=== PATIENT | male | born 1995 | race Caucasian/White ===

== ENCOUNTER 2024-07-13 13:48 | Emergency (ER) | payer OTHER, SELFPAY ==
[2024-07-13 14:09] VITALS: BP 179/91; PULSE 86; TEMP 37; O2SAT 100; BMI 51.1
--- NOTE | 2024-07-13 14:21 | ED_ITS ---
HPI - Extremity Problem General Chief complaint: Extremity Problem, Nontraumatic Stated complaint: LOWER RIGHT EXTREMITY ITCHY, SWELLING Time Seen by Provider: 07/13/24 14:16 Source: patient Mode of arrival: walk-in Limitations: no limitations History of Present Illness HPI Narrative: 28 year old male presents to the ED for erythema to his right anterior lower leg. Onset was 10-14 days ago. Reports completing a 10-day course of doxycycline. It started on the back of the leg. States it was improving and then moved to the front of the leg. His first treatment for cellulitis of the RLE was one year ago. Denies fever, chills, weakness, recent injury, N/T. States he recently had blood work completed; he would prefer to not have blood work drawn today. Related Data Previous Rx's ?Medication ?Instructions ?Recorded clindamycin HCl 300 mg capsule 300 mg PO TID 10 days #30 caps 07/13/24 Allergies Allergy/AdvReac Type Severity Reaction Status Date / Time amoxicillin AdvReac Severe Rash Verified 07/13/24 14:09 Penicillins AdvReac Severe Hives Verified 07/13/24 14:09 Review of Systems ROS Constitutional Denies: fever or chills Cardiovascular Denies: chest pain or edema Respiratory Denies: shortness of breath Integumentary/Breast Reports: redness and skin tenderness Neurological Denies: numbness in extremities or weakness in extremities PFSH PFSH Social History Little interest or pleasure in doing things: not at all Feeling down, depressed, or hopeless: not at all Exam Constitutional Vital Signs, click to edit/add: Last Vital Signs Temp 98.6 F 07/13/24 14:09 Pulse 86 07/13/24 14:09 Resp 18 07/13/24 14:09 BP 179/91 H 07/13/24 14:09 Pulse Ox 100 07/13/24 14:09 Common normals: no apparent distress and oriented x3 General appearance: cooperative; not ill appearing Eye Common normals: conjunctivae normal and no scleral icterus Neck & C-Spine Common normals: supple Chest Chest: symmetrical chest wall rise Respiratory Common normals: normal respiratory effort Effort & inspection: able to speak in complete sentences Cardio Common normals: regular rate Peripheral pulses: posterior tibial pulses present and dorsalis pedis pulses present Extremity Other: Areas of erythema with increased warmth to right anterior lower leg. No pitting edema. No drainage. No open wounds. 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 Course Vital Signs Vital signs: Vital Signs Temperature 98.6 F 07/13/24 14:09 Pulse Rate 86 07/13/24 14:09 Respiratory Rate 18 07/13/24 14:09 Blood Pressure 179/91 H 07/13/24 14:09 Pulse Oximetry 100 07/13/24 14:09 Temperature 98.6 F 07/13/24 14:09 Pulse Rate 86 07/13/24 14:09 Respiratory Rate 18 07/13/24 14:09 Blood Pressure 179/91 H 07/13/24 14:09 Pulse Oximetry 100 07/13/24 14:09 MDM - Extremity (Nontraumatic) MDM Narrative Medical decision making narrative: The patient preferred not to have blood work completed today. A prescription was provided for clindamycin for the cellulitis. Follow up with pcp for a recheck, further evaluation and treatment. Return precautions were discussed. Medical Records Attestation: I reviewed the patient's medical records. Discharge Plan Discharge Chief Complaint: Extremity Problem, Nontraumatic Clinical Impression: Cellulitis Patient Disposition: Home, Self-Care Time of Disposition Decision: 14:30 Condition: Good Mode of Transportation: Private Vehicle Prescriptions / Home Meds: New clindamycin HCl 300 mg capsule 300 mg PO TID 10 Days Qty: 30 0RF Print Language: Anguillan Instructions: Cellulitis (ED) Referrals: KATEY RUTH DO [Primary Care Provider] - 1 week
== END 2024-07-13 14:40 | disposition home or self-care (01) ==
PROVIDERS: Emergency Provider Emergency Medicine; PCP Family Medicine
DX: L03.115 Cellulitis of right lower limb (principal)
CPT/HCPCS: 99283

== ENCOUNTER 2025-09-10 09:26 | Emergency (ER) | payer OTHER, SELFPAY ==
--- OUTSIDE RECORDS SUMMARY | 2024-07-02 08:00 | XMS_ITS ---
Author Organization The [facility] in [place] Address [address] [place] [address] Care Team Providers Care Oval Or Circular Glass Cutter Name Role Phone Tawanda Brasher Primary Care Provider REASON FOR VISIT -6 Month Follow Up- Encounters Encounter Location Date Provider Diagnosis [address] [address] 07/02/2024 Tawanda Brasher Plan Of Treatment No Information Progress Notes * SANDEEPAntelmoOB:1995 ( 29 yo M)Acc No.[id number]:07/02/2024 UNLOCKED PROGRESS NOTE Established Patient: Kun SUN :?Tawanda Brasher DODOB:1995???Age:28 Y ???Sex:MaleDate:07/02/2024hone:[phone]:NICA CARRASCO [id number] Subjective: * Chief Complaints: * 1 . -6 Month Follow Up-. * Medical History: Objective: * Vitals: Assessment: Plan: * Treatment: * * Electronic signature of Tawanda Brasher DO, [id number] on 09/10/2025 at 10:09 AM ESTSign off status: PendingVisit Status:?R/S (Rescheduled) * Provider: Caitlyn Brasher DO Date: 0 07/02/2024 Generated for Printing/Faxing/eTransmitting on:?09/10/2025 10:09 AM EST
--- OUTSIDE RECORDS SUMMARY | 2025-06-25 06:00 | XMS_ITS ---
Author Organization [facility] in [place] Address [address] [place] [address] Care Team Providers Care Mangle Roll Operator Name Role Phone Tawanda Brasher Primary Care Provider [phone] REASON FOR VISIT yearly wellness exam Encounters Encounter Location Date Provider Diagnosis [place] [address] [place] [address] 06/25/2025 Tawanda Brasher Plan Of Treatment No Information Progress Notes * SANDEEPAntelmo ARMSTRONGOB:1995 ( 29 yo M)Acc No.[id number]:06/25/2025 UNLOCKED PROGRESS NOTE Progress Note Patient: Kun SUN :?Tawanda Brasher DODOB:1995???Age:29 Y ???Sex:MaleDate:06/25/2025Phone:[phone]:NICA CARRASCO [id number] Subjective: * Chief Complaints: * 1 . Yearly wellness exam. * Medical History: Objective: * Vitals: Assessment: Plan: * Treatment: * * Electronic signature of Tawanda Brasher DO, [id number] on 09/10/2025 at 10:08 AM ESTSign off status: PendingVisit Status:?CANC (Cancelled) * Provider: Caitlyn Brasher DO Date: 0 06/25/2025 Generated for Printing/Faxing/eTransmitting on:?09/10/2025 10:08 AM EST
[2025-09-10 09:35] VITALS: BP 180/106; PULSE 86; TEMP 36.6; O2SAT 100; BMI 51.0
--- NOTE | 2025-09-10 09:57 | ED.GENADUL1 ---
HPI HPI - General Adult General Chief complaint: Extremity Problem, Nontraumatic Stated complaint: R LEG REDNESS PAIN Time Seen by Provider: 09/10/25 09:35 Source: patient Mode of arrival: walk-in History of Present Illness HPI narrative: Patient is a healthy 29-year-old male, history only significant for recurrent episodes of lower extremity cellulitis, presenting to the emergency department for concerns of cellulitis. Patient states he noticed a mildly red and painful rash on the right anterior quintana that began 2 days ago. He states this feels exactly his last episode of cellulitis and is requesting antibiotics. Other than the pain/rash, he has no other systemic symptoms. No fevers or chills. No nausea or vomiting. No chest pain or shortness of breath. Related Data Home Medications ?Medication ?Instructions ?Recorded ?Confirmed nebivolol 20 mg tablet 20 mg PO DAILY 09/10/25 09/10/25 Previous Rx's ?Medication ?Instructions ?Recorded doxycycline hyclate 100 mg capsule 100 mg PO BID 7 days #14 caps 09/10/25 Allergies Allergy/AdvReac Type Severity Reaction Status Date / Time amoxicillin AdvReac Severe Rash Verified 09/10/25 09:34 Penicillins AdvReac Severe Hives Verified 09/10/25 09:34 Opioid HPI Opioid Management Most Recent Opioid Data: Last Pain Scale 3 Today, 09:40 Review of Systems ROS Status of ROS 10 or more systems reviewed and unremarkable except as noted in history and below PFSH PFSH Social History Little interest or pleasure in doing things: not at all Feeling down, depressed, or hopeless: not at all Exam Narrative Exam Narrative: CONSTITUTIONAL: Well-appearing, answering questions and following commands appropriately SKIN: Was warm and dry. EYES: Sclerae white. EARS, NOSE, THROAT: Moist oral mucosa. RESPIRATORY: Nonlabored respirations. CARDIOVASCULAR: Normal rate and regular rhythm. There is no S3, S4, murmur, rub. GASTROINTESTINAL: Abdomen is nondistended. MUSCULOSKELETAL: There is a subtle, mild erythematous rash on the patient's anterior tibia approximately 4 cm in surface area. It is mildly warm to the touch. There is no induration, fluctuance, bulla formation, crepitus, or drainage. NEUROLOGIC: Patient is awake and alert. Ambulates with a steady gait. Facies were symmetrical. Constitutional Vital Signs, click to edit/add: Last Vital Signs Temp 97.8 F 09/10/25 09:35 Pulse 86 09/10/25 09:35 Resp 16 09/10/25 09:35 BP 180/106 H 09/10/25 09:35 Pulse Ox 100 09/10/25 09:35 O2 Del Method Room Air 09/10/25 09:35 Course Vital Signs Vital signs: Vital Signs Temperature 97.8 F 09/10/25 09:35 Pulse Rate 86 09/10/25 09:35 Respiratory Rate 16 09/10/25 09:35 Blood Pressure 180/106 H 09/10/25 09:35 Pulse Oximetry 100 09/10/25 09:35 Oxygen Delivery Method Room Air 09/10/25 09:35 Temperature 97.8 F 09/10/25 09:35 Pulse Rate 86 09/10/25 09:35 Respiratory Rate 16 09/10/25 09:35 Blood Pressure 180/106 H 09/10/25 09:35 Pulse Oximetry 100 09/10/25 09:35 Oxygen Delivery Method Room Air 09/10/25 09:35 Medical Decision Making [facility] Narrative Medical decision making narrative: Patient is a healthy 29-year-old male presenting to the emergency department with a 2-day history of right lower extremity pain and rash. His vital signs were significant for hypertension, otherwise within normal limits. He is afebrile and hemodynamically stable. The patient's history and physical examination is consistent with early cellulitis. No crepitus, bulla formation, or other systemic symptoms to suggest necrotizing fasciitis. He overall is well-appearing and nontoxic. I do believe the patient is stable for discharge. They were instructed to follow up with his PCP for further care. Return precautions were given including any new or worsening symptoms. They were given a prescription for doxycycline 100 mg twice daily x 7 days. Patient understands and agrees to the plan. FINAL IMPRESSION: #Acute mild right lower extremity cellulitis DISPOSITION: Discharged home CONDITION: Good Differential Diagnosis Differential Diagnosis: cellulitis, dermatitis Discharge Plan Discharge Chief Complaint: Extremity Problem, Nontraumatic Clinical Impression: Cellulitis Patient Disposition: Home, Self-Care Time of Disposition Decision: 09:51 Condition: Good Mode of Transportation: Private Vehicle Prescriptions / Home Meds: New doxycycline hyclate 100 mg capsule 100 mg PO BID 7 Days Qty: 14 0RF No Action nebivolol 20 mg tablet 20 mg PO DAILY Print Language: Guatemalan Instructions: Cellulitis (ED) Referrals: KATEY RUTH DO [Primary Care Provider, Family Practice] - 1 week
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
--- OUTSIDE RECORDS SUMMARY | 2025-09-10 10:09 | XMS_ITS | Clinical Summary ---
Author Organization [facility] Address [address] [place], [place] [id number] Care Team Providers Care Interior Design Professional Name Role Phone Unavailable Primary Care Provider Unavailabl e Allergies Active AllergyReactionsCriticalityNoted DateCommentsAmoxicillinRash,Swelling 06/09/2020 Medications No known medications Active Problems No known active problems Social History Tobacco UseTypesPacks/DayYears UsedDateSmoking Tobacco: Never AssessedArea Deprivation IndexAnswerDate RecordedNational Score (1-100), lower number is lower riskNot on file10/12/2020State Score (1-10), lower number is lower riskNot on file10/12/2020Data from: https://www.neighborhoodatlas.[facility].edu/. Last address used for calculationNot on file10/12/2020Sex and Gender Information ValueDate RecordedSex Assigned at BirthNot on fileLegal JzvTapy1001/15/2020 1:06 PM EDTGender IdentityNot on fileSexual OrientationNot on file Last Filed Vital Signs Vital SignReadingTime TakenCommentsBlood Gasxuzro265/8508 9:45 AM EDT Mgnst9596 9:45 AM EDTTemperature--Respiratory Rate--Oxygen Saturation-- Inhaled Oxygen Concentration--Guwwfs735.3 kg (327 lb)06/09/2020 9:45 AM EDT Height--Body Mass Index-- Plan of Treatment Health MaintenanceDue DateLast DoneCommentsAnxiety Ptmxkobxs32/10/2015Depression Iqlqkjobq91/10/2015HIV Uekicuyqd95/10/2015Hepatitis C Xdvvupgug18/10/2015 DTaP,Tdap,Td Vaccine (1 - Tdap)2015Hepatitis B Vaccine (1 of 3 - 19+ 3- dose series)2015HPV Vaccine (1 - 3-dose SCDM series)4Covid-19 Vaccine (2024- season)2025Influenza Vaccine (#1)2025 Insurance [facility] [place] [place] Address: [address] [address] [place] [address]
--- OUTSIDE RECORDS SUMMARY | 2025-09-10 10:09 | XMS_ITS | Clinical Summary ---
Author Organization [facility] Address [address] [place] [address] Care Team Providers Care Psychiatric Orderly Name Role Phone Unavailable Primary Care Provider Unavailabl e Social History Tobacco UseTypesPacks/DayYears UsedDateSmoking Tobacco: Never AssessedSex and Gender InformationValueDate RecordedSex Assigned at BirthNot on fileLegal Sex Male01/16/2023 6:40 PM EDTGender IdentityNot on fileSexual OrientationNot on file Last Filed Vital Signs Vital SignReadingTime TakenCommentsBlood Pressure--Pulse--Temperature-- Respiratory Rate--Oxygen Saturation--Inhaled Oxygen Concentration--Sjxbue979 kg (373 lb)09/11/2022 12:00 PM EJRPwquch373.9 cm (6')09/11/2022 12:00 PM ESTBody Mass Index50.5909/11/2022 12:00 PM EST Plan of Treatment Not on file
--- OUTSIDE RECORDS SUMMARY | 2025-09-10 10:13 | XMS_ITS | CCD ---
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 [Mass/Vol]3.3 g/dL Critically low3.4-5.0The [facility] HospitalComment on above:Performed By: #### CMP #### [facility] [address] [address] [address] Sj SandovalAlbumin/Globulin [Mass ratio]0.8 {ratio}NormalOhiohealth Grove City Methodist HospitalComment on above:Performed By: #### CMP #### [facility] [address] [address] [address] Sj Oswald [Catalytic activity/Vol]73 U/HMmzoki12-398Xgr [facility] HospitalComment on above:Performed By: #### CMP #### [facility] [address] [address] [address] Sj Hood [Catalytic activity/Vol]50 U/NQoxybw03-66Rrs [facility] HospitalComment on above:Performed By: #### CMP #### [facility] [address] [address] [address] Sj Cooper gap [Moles/Vol]13.2 mmol/LNormalThe [facility] Comment on above:Performed By: #### CMP #### [facility] [address] [place] [address] Dr. Sj SandovalAST [Catalytic activity/Vol]22 U/MOraqtc97-83Ton [facility] HospitalComment on above:Performed By: #### CMP #### [facility] [address] [address] [address] Sj SandovalBilirubin [Mass/Vol]0.6 mg/dLNormal0.2-1.0The [facility] Comment on above:Performed By: #### CMP #### [facility] [address] [address] [address] Sj SandovalCalcium [Mass/Vol]8.9 mg/dLNormal8.5-10.1The [facility] Comment on above:Performed By: #### CMP #### [facility] [address] [address] [address] Sj SandovalChloride [Moles/Vol]105 mmol/LRypsgk96-288Tae [facility] Comment on above:Performed By: #### CMP #### [facility] [address] [address] [address] Sj SandovalCO2 [Moles/Vol]27.7 mmol/ZOzyyst30.0-32.0The [facility] Comment on above:Performed By: #### CMP #### [facility] [address] [address] [address] Sj SandovalCreatinine [Mass/Vol]0.96 mg/dLNormal0.70-1.30The [facility] HospitalComment on above:Performed By: #### CMP #### [facility] [address] [address] [address] Sj CoreasGFR-AF TAJIK>60Normal>=60The [facility] HospitalComment on above:Performed By: #### CMP #### [facility] [address] [address] [address] Sj CoreasGFR-NON AF TAJIK>60Normal>=60[facility] HospitalComment on above:Performed By: #### CMP #### [facility] [address] [address] [address] Sj SandovalGlobulin (S) [Mass/Vol]4.2 g/dLNormalThe [facility] HospitalComment on above:Performed By: #### CMP #### [facility] [address] [address] [address] Sj SandovalGlucose [Mass/Vol]86 mg/qGTftpmb14-721ZnsOhiohealth Grove City Methodist Hospital Comment on above:Performed By: #### CMP #### [facility] [address] [address] [address] Sj SandovalPotassium [Moles/Vol]3.9 mmol/LNormal3.5-5.1The [facility] Comment on above:Performed By: #### CMP #### [facility] [address] [address] [address] Sj SandovalProtein [Mass/Vol]7.5 g/dLNormal6.4-8.2[facility] Comment on above:Performed By: #### CMP #### [facility] [address] [address] [address] Sj SandovalSodium [Moles/Vol]142 mmol/QLvzyeq557-524MotOhiohealth Grove City Methodist Hospital Comment on above:Performed By: #### CMP #### [facility] [address] [place], [place] [address] Dr. Sj Munoz nitrogen [Mass/Vol]10.0 mg/dLNormal7.0-18.0[facility] HospitalComment on above:Performed By: #### CMP #### [facility] [address] [place], [place] [address] Dr. Sj SandovalUrea nitrogen/Creatinine [Mass ratio]10.4 mg/mgNoAvita Health SystemComment on above:Performed By: #### CMP #### [facility] [address] [place], [place] [address] Dr. Sj Luo MICHELLE DOP LEG RTon 75-23-8876UO MICHELLE DOP LEG RTEXAM: US MICHELLE DOP LEG RT HISTORY: Distal right lower leg redness COMPARISON: None. TECHNIQUE: Multiple sonographic images of the deep veins of the right lower extremity were obtained, supplemented with Doppler. FINDINGS: The deep veins of the right lower extremity are fairly well-visualized the groin to the mid calf. No filling defect is identified in the deep veins to indicate a thrombus. There is normal compression augmentation to flow throughout. A small amount of superficial edema is seen in the distal lower extremity. IMPRESSION: There is no direct or indirect evidence of deep vein thrombosis in the right lower extremity at this time. Electronically authenticated by: TISHA KENNEDY Date: 2023-02-19 16:49[facility] CenterMRI KNEE LT WO CONon 08-75-6848YUR KNEE LT WO CONEXAMINATION: MRI KNEE LT WO CON HISTORY: Sprain of knee COMPARISON: No relevant comparison available. TECHNIQUE: A complete multi-planar MRI was performed. FINDINGS: MEDIAL COMPARTMENT MEDIAL MENISCUS: No visible tear or significant degeneration. CARTILAGE: No visible defect. BONES: 1.4 cm area of bone edema posterior aspect of the medial tibial plateau MCL AND MEDIAL CAPSULE: Partial tear of the medial collateral ligament LATERAL COMPARTMENT LATERAL MENISCUS: No visible tear or significant degeneration. CARTILAGE: No visible defect. BONES: 2.5 cm area of bone edema lateral tibial plateau LCL/POSTEROLAT COMPLEX: Normal lateral collateral ligament, fascicles, lateral capsule and ligaments. ANTERIOR COMPARTMENT PATELLA: No marrow pathology, fracture, or significant arthropathy. CARTILAGE: No visible defect. TENDONS: Normal. EFFUSION: Moderate joint effusion ACL: Findings suggesting strain/partial tear PCL: Findings suggest partial to complete tear proximal insertion MENISCOFEMORAL: Normal meniscofemoral ligaments. OTHER: Negative. IMPRESSION: Partial or complete tear proximal posterior cruciate ligament Strain/partial tear of the anterior cruciate ligament Partial tear of medial collateral ligament Bone edema posterior medial tibial plateau and lateral tibial plateau Electronically authenticated by: ALYX SANTIAGO Date: 2022-07-20 16:49NoAvita Health SystemXR FOREIGN BODY EYEon [id number] FOREIGN BODY EYEEXAMINATION: XR FOREIGN BODY EYE HISTORY: Foreign body in eye COMPARISON: No relevant comparison available. FINDINGS: ORBITS: Negative for a metallic foreign body. OTHER: Negative. IMPRESSION: No metallic foreign body in the orbits Electronically authenticated by: ALYX SANTIAGO Date: 2022-07-20 12:35[facility] CenterXR ANKLE LT MIN 3 Von [id number] ANKLE LT MIN 3 VEXAM: XR ANKLE LT MIN 3 V HISTORY: Sprain of left ankle COMPARISON: 07/11/2022 TECHNIQUE: 3 views left ankle FINDINGS: No acute displaced fracture or dislocation identified. The ankle mortise appears intact. The talar dome is intact. The midfoot appears congruent. Achilles enthesophyte is noted. There is soft tissues on about the ankle. IMPRESSION: Negative radiographic evaluation for fracture. Electronically authenticated by: DEMARCUS MENESES Date: 2022-07-12 11:22[facility] CenterXR CSPINE MIN 4 VIEWSon [id number] CSPINE MIN 4 VIEWS EXAMINATION: XR CSPINE MIN 4 VIEWS HISTORY: Cervical spine tender COMPARISON: No relevant comparison available. FINDINGS: BONES: Loss of normal cervical lordosis. No acute fracture or spondylolisthesis DISC SPACES: Normal. No significant disc height narrowing, subluxation, or endplate abnormality. PARASPINOUS: Negative. No paraspinous abnormality is seen. OTHER: C7 is not seen on the lateral projection. IMPRESSION: Loss of normal cervical lordosis Electronically authenticated by: ALYX SANTIAGO Date: 2022-07-12 11:25[facility] Medical CenterCNOVon [id number] Visit (UROLAV) KUN HOPKINS ([id number]) 1995 M Date Time Provider Department 06/09/20 10:00 AM NICOLAS SHULTZ During your visit today, we recorded the following information about you: Pulse Blood pressure Weight 99/minute 135/85 148.3 kg Nicolas Shultz MD 06/09/2020 10:26 AM Signed PATIENT INFO: Kun Hopkins 24 year old REFERRING M.D.: DR. KATEY MYRICK RETURN COMMUNICATION TO SELF VIA Take the Interview ELECTRONIC COMMUNICATION OR LETTER IF @REFADDER@ IS NOT Epic CONNECTED CC: Buried penis HPI:Kun Hopkins is a 24 year old male who presents after undergoing circumcision with his local urologist January 2020. He was sent for post-procedure evaluation. Voiding Symptoms: Urinary frequency - No; Urinary urgency - No; Dysuria - No; Hematuria - No; Nocturia - No 0-1 times per night; Incomplete emptying - No He reports no issues with erections Constitutional; Kun Hopkins denies fever, chills, nausea, vomiting and constipation. Meds: No current outpatient medications on file. No current facility-administered medications for this visit. Alleregies: ALLERGIES Allergen Reactions - Amoxicillin Rash, Swelling PAST MEDICAL HISTORY: History reviewed. No pertinent past medical history. PAST SURGICAL HISTORY; History reviewed. No pertinent surgical history. FAMILY HISTORY; History reviewed. No pertinent family history. SOCIAL HISTORY: Social History Tobacco Use - Smoking status: Not on file Substance Use Topics - Alcohol use: Not on file - Drug use: Not on file ROS: GENERAL:No weight loss, malaise or fevers HEENT:Negative for frequent or significant headaches, No changes in hearing or vision, no nose bleeds or other nasal problems NECK:Negative for lumps, goiter, pain and significant neck swelling RESPIRATORY: Negative for cough, hemoptysis, wheezing, COPD, dyspnea or shortness of breath CARDIOVASCULAR: Negative for chest pain, leg swelling, hypertension, CHF or palpitations GASTROINTESTINAL: No nausea, vomiting, or diarrhea GENITOURINARY: No history of dysuria, frequency or incontinence MUSCULOSKELETAL: Negative for joint pain or swelling, back pain or muscle pain NEUROLOGIC:Negative for focal numbness or weakness, headaches and dizziness or syncope. SKIN:Negative for lesions, rash, and itching PSYCHIATRIC: Negative for sleep disturbance, mood disorder and recent psychosocial stressors. HEMATOLOGIC/LYMPHATIC/IMMUNOLOGIC:Negative for prolonged bleeding, bruising easily or swollen nodes The remainder of the ROS was negative. P/E: General appearance: Well appearing, alert, in no acute distress, well-hydrated, well nourished, obese Skin: Skin color, texture, turgor normal, no suspicious rashes or lesions Head: Normocephalic, no masses, lesions, tenderness or abnormalities Eyes: Anicteric sclera.Pupils equally round Ears: External ears normal Nose/Sinuses: Nares normal Oropharynx: Lips, mucosa, and tongue normal, teeth and gums normal, oropharynx normal Neck: Supple, no adenopathy; thyroid symmetric, normal size Back: Normal exam, no CVA tenderness Lungs: lungs clear to auscultation. No wheezing, rhonchi, rales Heart: RRR without murmur, gallop, or rubs. Abdomen: soft, non-tender. Bowel sounds normal. No masses, organomegaly, no hernia Genitals: penis normal with dog-ear deformity @ 10:00 and 2:00 locations, no lesion, urethral meatus is normal, scrotum - no lesions or erythema, testicles bilaterally descended, non-tender, no masses, epididymus normal bilaterally Extremities: No deformities, edema, skin discoloration, clubbing or cyanosis. Good capillary refill. Musculoskeletal: No joint swelling, deformity, or tenderness Neuro: Gait normal. Sensation grossly intact. Additional data reviewed: U/A ASSESSMENT/PLAN: 1. Screening for genitourinary condition - ICD9: V81.6, ICD10: Z13.89 (primary diagnosis) - UA DIP, URINE (POC) 2. Penile lesion - ICD9: 607.89, ICD10: N48.9 He is not bothered by the outcome of his circumcision and any correction at this point would be cosmetic. I advised he can return at any time to discuss revision. Nicolas Shultz MD Referring Provider: SELF [200] Allergies As of Date: 06/09/2020 Noted Allergy Reaction AMOXICILLIN 06/09/2020 2 - Rash 7 - Swelling Date Reviewed: 06/09/2020 Reviewed by: Nicolas Shultz - Fully Assessed Reason for Visit: New Patient Evaluation [154] Cmt: corrective circumcision done by outside provider 01/2020; here for 2nd opinion Reason For Visit History Recorded Primary Visit Diagnosis:Screening for genitourinary condition [Z13.89] Other Visit Diagnosis:Penile lesion [N48.9] Order(s):UA DIP, URINE (POC) [0432042] Order #: [id number]. #:[id number] Problem List As Of Date: 06/09/2020 (None) Disposition: Return if symptoms worsen or fail to improve. Follow-up and Disposition History Recorded Encounter Status:Closed by NICOLAS SHULTZ MD on 06/09/20[facility] PHYSICALon [id number] PHYSICALHNO ID: [id number] Author: Nicolas Shultz Service: ? Author Type: Physician Type: HANDP Filed: 06/09/2020 10:26 AM Note Text: PATIENT INFO: Kun Hopkins 24 year old REFERRING M.D.: DR. KATEY MYRICK RETURN COMMUNICATION TO SELF VIA Take the Interview ELECTRONIC COMMUNICATION OR LETTER IF @REFADDER@ IS NOT Epic CONNECTED CC: Buried penis HPI:Kun Hopkins is a 24 year old male who presents after undergoing circumcision with his local urologist January 2020. He was sent for post-procedure evaluation. Voiding Symptoms: Urinary frequency - No; Urinary urgency - No; Dysuria - No; Hematuria - No; Nocturia - No 0-1 times per night; Incomplete emptying - No He reports no issues with erections Constitutional; Kun Hopkins denies fever, chills, nausea, vomiting and constipation. Meds: No current outpatient medications on file. No current facility-administered medications for this visit. Alleregies: ALLERGIES Allergen Reactions - Amoxicillin Rash, Swelling PAST MEDICAL HISTORY: History reviewed. No pertinent past medical history. PAST SURGICAL HISTORY; History reviewed. No pertinent surgical history. FAMILY HISTORY; History reviewed. No pertinent family history. SOCIAL HISTORY: Social History Tobacco Use - Smoking status: Not on file Substance Use Topics - Alcohol use: Not on file - Drug use: Not on file ROS: GENERAL:No weight loss, malaise or fevers HEENT:Negative for frequent or significant headaches, No changes in hearing or vision, no nose bleeds or other nasal problems NECK:Negative for lumps, goiter, pain and significant neck swelling RESPIRATORY: Negative for cough, hemoptysis, wheezing, COPD, dyspnea or shortness of breath CARDIOVASCULAR: Negative for chest pain, leg swelling, hypertension, CHF or palpitations GASTROINTESTINAL: No nausea, vomiting, or diarrhea GENITOURINARY: No history of dysuria, frequency or incontinence MUSCULOSKELETAL: Negative for joint pain or swelling, back pain or muscle pain NEUROLOGIC:Negative for focal numbness or weakness, headaches and dizziness or syncope. SKIN:Negative for lesions, rash, and itching PSYCHIATRIC: Negative for sleep disturbance, mood disorder and recent psychosocial stressors. HEMATOLOGIC/LYMPHATIC/IMMUNOLOGIC:Negative for prolonged bleeding, bruising easily or swollen nodes The remainder of the ROS was negative. P/E: General appearance: Well appearing, alert, in no acute distress, well-hydrated, well nourished, obese Skin: Skin color, texture, turgor normal, no suspicious rashes or lesions Head: Normocephalic, no masses, lesions, tenderness or abnormalities Eyes: Anicteric sclera.Pupils equally round Ears: External ears normal Nose/Sinuses: Nares normal Oropharynx: Lips, mucosa, and tongue normal, teeth and gums normal, oropharynx normal Neck: Supple, no adenopathy; thyroid symmetric, normal size Back: Normal exam, no CVA tenderness Lungs: lungs clear to auscultation. No wheezing, rhonchi, rales Heart: RRR without murmur, gallop, or rubs. Abdomen: soft, non-tender. Bowel sounds normal. No masses, organomegaly, no hernia Genitals: penis normal with dog-ear deformity @ 10:00 and 2:00 locations, no lesion, urethral meatus is normal, scrotum - no lesions or erythema, testicles bilaterally descended, non-tender, no masses, epididymus normal bilaterally Extremities: No deformities, edema, skin discoloration, clubbing or cyanosis. Good capillary refill. Musculoskeletal: No joint swelling, deformity, or tenderness Neuro: Gait normal. Sensation grossly intact. Additional data reviewed: U/A ASSESSMENT/PLAN: 1. Screening for genitourinary condition - ICD9: V81.6, ICD10: Z13.89 (primary diagnosis) - UA DIP, URINE (POC) 2. Penile lesion - ICD9: 607.89, ICD10: N48.9 He is not bothered by the outcome of his circumcision and any correction at this point would be cosmetic. I advised he can return at any time to discuss revision. Nicolas Shultz [facility]DMer[facility] Encounters Encounter DateEncounter TypeCare ProviderFacilityStart: 02-19-2023 End: 27-73-8547zdlgqeuuvzFI DANIEL A HERRINGFacility:B9Wqtbn: 07-20-2022 End: 06-84-5070ylvguayhvfATLMOLTE EBERLYFacility:T4Unxaz: 07-12-2022 End: 06-81-2880sovzjgkgvjQUJUWAHN EBERLYFacility:B1Myilz: 07-11-2022 End: 53-60-4913khnnrwxemtEC DANIEL A HERRINGFacility:H1 Payers DatePayer CategoryPayerPolicy [id number] [id number] Clinical Note 07-11-2022 Note Date & MtyhHhyuKkrlmgwp51-36-4158 NotePROCEDURE: XRAY Elbow Left 2 views , xray left forearm, xray left humerus COMPARISON: None. HISTORY: Trauma FINDINGS: BONES:No acute fracture of the humerus, elbow or forearm. No significant degenerative changes. SOFT TISSUES:Soft tissue swelling medial and dorsal elbow EFFUSION:None visible. OTHER: Negative. IMPRESSION: No acute fracture of the humerus, elbow or forearm Electronically authenticated by: ALYX SANTIAGO Date: 2022-07-11 08:35[facility] Clinical Note 07-11-2022 Note Date & YzxhPjnpTaxhynnd46-33-9399 NotePROCEDURE: XRAY Elbow Left 2 views , xray left forearm, xray left humerus COMPARISON: None. HISTORY: Trauma FINDINGS: BONES:No acute fracture of the humerus, elbow or forearm. No significant degenerative changes. SOFT TISSUES:Soft tissue swelling medial and dorsal elbow EFFUSION:None visible. OTHER: Negative. IMPRESSION: No acute fracture of the humerus, elbow or forearm Electronically authenticated by: ALYX SANTIAGO Date: 2022-07-11 08:35[facility] Clinical Note 07-11-2022 Note Date & FnefVbbgTalokrkp56-34-1331 NotePROCEDURE: XRAY Elbow Left 2 views , xray left forearm, xray left humerus COMPARISON: None. HISTORY: Trauma FINDINGS: BONES:No acute fracture of the humerus, elbow or forearm. No significant degenerative changes. SOFT TISSUES:Soft tissue swelling medial and dorsal elbow EFFUSION:None visible. OTHER: Negative. IMPRESSION: No acute fracture of the humerus, elbow or forearm Electronically authenticated by: ALYX SANTIAGO Date: 2022-07-11 08:35[facility] Clinical Note 07-11-2022 Note Date & DpooQqptKlorensg73-58-3511 NotePROCEDURE: XR TIBIA AND FIBULA LEFT COMPARISON: None. HISTORY: Trauma FINDINGS: BONES:No fracture, acute abnormality, or significant arthropathy. SOFT TISSUES:Negative. No visible soft tissue swelling. EFFUSION:None visible. OTHER: Negative. IMPRESSION: No acute fracture Electronically authenticated by: ALYX SANTIAGO Date: 2022-07-11 08:30[facility] Summary Purpose Family History No Family History Records FoundNo Family History Records FoundNo Family History Records Found Advance Directives No Advanced Directives Records FoundNo Advanced Directives Records FoundNo Advanced Directives Records Found Additional Source Comments (unrecognized sect ion and content) No Status Records FoundNo Status Records FoundNo Status Records Found INFORMATION SOURCE (unrecogn ized section and content) DATE CREATED AUTHOR 06/09/2020 [facility] DATE CREATED AUTHOR AUTHOR'S ORGANZAIRA ATION 02/26/2023 [facility] DATE CREATED AUTHOR AUTHOR'S ORGANIZ ATION 07/19/2024 [facility] FOR RECORDS PERTAINING TO PATIENTS WHO ARE OR HAVE BEEN ENROLLED IN A CHEMICAL DEPENDENCY/SUBSTANCEABUSE PROGRAM, SOME INFORMATION MAY BE OMITTED. This clinical summary was aggregated from multiple sources. Caution should be exercised in using it in the provision of clinical care. This summary normalizes information from multiple sources, and as a consequence, information in this document may materially change the coding, format and clinical context of patient data. In addition, data may be omitted in some cases. CLINICAL DECISIONS SHOULD BE BASED ON THE PRIMARY CLINICAL RECORDS. [facility] [id number] provides no warranty or guarantee of the accuracy or completeness of information in this document.
== END 2025-09-10 10:02 | disposition home or self-care (01) ==
LOC: ER 10:06
PROVIDERS: Emergency Provider Student in an Organized Health Care Education/Training Program; PCP Family Medicine
DX: L03.115 Cellulitis of right lower limb (principal)
CPT/HCPCS: 99283